=== PATIENT | female | born 1945 | race Caucasian/White ===

== ENCOUNTER 2016-09-22 10:52 | Day surgery (SDC) | payer BC ==
[2016-09-12 12:45] VITALS: BMI 25.9
[2016-09-22] MEDS ORDERED: PROPOFOL 20 ML ONE ×2 (11:06)
[2016-09-22 14:36] VITALS: BP 129/89; PULSE 90; TEMP 98.1
--- NOTE | 2016-09-23 13:01 | PATH ---
Surgical Pathology Report Patient Name: EDYTA MARTELL [facility]. Rec. #: [id number] /Age/Gender: 1945 (Age: 71) / F Account: [id number] Location: [facility]OSCOPY Taken: 09/22/2016 Received: 09/22/2016 Reported: 09/23/2016 Physicians: Emilio Garvey M.D. Specimen(s) Received A: BX DUODENUM B: BX ANTRUM C: BX CECUM D: BX RIGHT COLON Clinical History GERD, history of polyps Rule out celiac disease, gastritis, colonic polyps Final Diagnosis A. DUODENUM, BIOPSY: DUODENAL MUCOSA WITH NO PATHOLOGIC FINDINGS. Note: Features suggestive of celiac disease are not identified in this biopsy. B. ANTRUM, BIOPSY: MODERATE CHRONIC GASTRITIS. IMMUNOSTAIN IS NEGATIVE FOR H. PYLORI ORGANISMS. C. CECUM, BIOPSY: HYPERPLASTIC POLYP. D. RIGHT COLON, BIOPSY: TUBULAR ADENOMA. Electronically Signed Christine Bonilla M.D. Gross Description A. Received in formalin, labeled "duodenum" are 3 quesada, irregular portions of soft tissue ranging from 0.2-0.6 cm. in greatest dimension. The specimens are submitted in toto in one cassette. B. Received in formalin, labeled "antrum" are 2 quesada, irregular portions of soft tissue averaging 0.3 cm. in greatest dimension. The specimens are submitted in toto in one cassette. C. Received in formalin, labeled "cecum" is a quesada, irregular portion of soft tissue measuring 0.3 cm. in greatest dimension. The specimen is submitted in toto in one cassette. D. Received in formalin, labeled "right colon" is a quesada, irregular portion of soft tissue measuring 0.2 cm. in greatest dimension. The specimen is submitted in toto in one cassette. DL/09/22/2016 saudi09/22/2016
== END 2016-09-22 14:25 | disposition home or self-care (01) ==
LOC: FASU-ENDO 10:52
PROVIDERS: ATTEND Internal Medicine Gastroenterology
PROC: 0DB68ZX Excision of Stomach, Via Natural or Artificial Opening Endoscopic, Diagnostic (ICD-10-PCS; 2016-09-22)
PROC: 0DBH8ZX Excision of Cecum, Via Natural or Artificial Opening Endoscopic, Diagnostic (ICD-10-PCS; principal; 2016-09-22 12:37)
PROC: 0DBK8ZX Excision of Ascending Colon, Via Natural or Artificial Opening Endoscopic, Diagnostic (ICD-10-PCS; 2016-09-22 12:37)
PROC: 0DB98ZX Excision of Duodenum, Via Natural or Artificial Opening Endoscopic, Diagnostic (ICD-10-PCS; 2016-09-22 12:37)
DX: Z86.010 Personal history of colon polyps (principal); Z80.0 Family history of malignant neoplasm of digestive organs; D12.2 Benign neoplasm of ascending colon; K63.5 Polyp of colon; K57.30 Diverticulosis of large intestine without perforation or abscess without bleeding; K64.8 Other hemorrhoids; K29.50 Unspecified chronic gastritis without bleeding; R12 Heartburn; K44.9 Diaphragmatic hernia without obstruction or gangrene
CPT/HCPCS: 88305-TC; 88342-TC

== ENCOUNTER 2021-09-18 07:52 | Day surgery (SDC) | payer BC ==
[2021-09-13 15:40] VITALS: BMI 25.9
[2021-09-18 09:16] VITALS: TEMP 97
[2021-09-18 09:26] VITALS: BP 132/72; PULSE 86
== END 2021-09-18 09:42 | disposition home or self-care (01) ==
LOC: FASU-ENDO 07:52
PROVIDERS: ATTEND Internal Medicine Gastroenterology
PROC: 0DJD8ZZ Inspection of Lower Intestinal Tract, Via Natural or Artificial Opening Endoscopic (ICD-10-PCS; principal; 2021-09-18 08:38)
DX: Z12.11 Encounter for screening for malignant neoplasm of colon (principal); Z86.010 Personal history of colon polyps; K57.30 Diverticulosis of large intestine without perforation or abscess without bleeding; K64.0 First degree hemorrhoids; K64.8 Other hemorrhoids; Z80.0 Family history of malignant neoplasm of digestive organs; Z83.71 Family history of colonic polyps